=== PATIENT | female | born 1990 | race African-American/Black ===

== ENCOUNTER 2020-06-24 22:22 | Emergency (ER) | payer OTHER ==
[~2020-06-24] VITALS: Ht 160 cm; Wt 83.9 kg
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
--- NOTE | 2020-06-24 22:55 | NUR ---
ER DISCHARGE NOTE: Patient is cleared to be discharged per ERMD, pt is aox4, on room air, with stable vital signs. pt was given dc and prescription instructions, pt was able to verbalize understanding, pt id band removed without complications. pt is able to ambulate with steady gait. pt took all belongings.
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
[2020-06-24] MEDS ORDERED: IBUPROFEN600 M1 ORAL (23:28)
[2020-06-24 23:36] VITALS: BP 140/86
--- NOTE | 2020-06-24 23:36 | Diagnostic Imaging Report ---
EXAM: XR Left Hand Complete, 3 or More Views CLINICAL HISTORY: FB TECHNIQUE: Frontal, lateral and oblique views of the left hand. COMPARISON: No relevant prior studies available. FINDINGS: Bones/joints: Unremarkable. No acute fracture. No dislocation. Soft tissues: Unremarkable. No radiopaque foreign body. IMPRESSION: Normal left hand x-rays.
--- NOTE | 2020-06-24 23:39 | Diagnostic Imaging Report ---
EXAM: XR Right Foot Complete, 3 or More Views CLINICAL HISTORY: FB TECHNIQUE: Frontal, lateral and oblique views of the right foot. COMPARISON: No relevant prior studies available. FINDINGS: Bones/joints: Unremarkable. No acute fracture. No dislocation. Soft tissues: Unremarkable. No radiopaque foreign body. IMPRESSION: Unremarkable right foot x-rays.
== END 2020-06-24 23:55 | disposition home or self-care (01) ==
LOC: EMR 22:43
DX: S93.501A Unspecified sprain of right great toe, initial encounter (principal); S61.412A Laceration without foreign body of left hand, initial encounter; V43.92XA Unspecified car occupant injured in collision with other type car in traffic accident, initial encounter; Y92.411 Interstate highway as the place of occurrence of the external cause
CPT/HCPCS: 73130; 73630; Z7502; 99284

== ENCOUNTER 2020-07-16 12:34 | Emergency (ER) | payer OTHER ==
[~2020-07-16] VITALS: Ht 167.6 cm; Wt 72.6 kg
[~2020-07-16 12:34] MED LIST: IBUPROFEN600 M1 ORAL
[2020-07-16 13:30] VITALS: BP 130/80
[2020-07-16] MEDS ORDERED: Fluorescein Strips RIGHT EYE ONE (13:30)
[2020-07-16] MEDS ORDERED: Tetracaine 0.5% Opth 4ml Soln RIGHT EYE ONE (13:30)
--- NOTE | 2020-07-16 13:30 | NUR ---
complaints of eye pain glu fell her eye dr figueroa at bedside
--- NOTE | 2020-07-16 13:42 | Emergency Room Report ---
History of Present Illness General Chief Complaint: Eye Problems Source: Patient Present Illness HPI The patient was using superglue. She was replacing the cap and some splashed on her face and into her right eye. She felt it was over her pupil. There is no change in vision. She had immediate pain at that time. She tried to remove the glue that was in her eye with her finger. The pain is persisted. This happened within the last 2 hours. The pain is worse when her eyes open. She did not rinse out her eye. Patient denies exposure to Covid positive contacts. No fevers or upper respiratory symptoms. Her tetanus is up-to-date as of last year. Patient denies major medical problems. 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 Patient History Past Medical History: none Social History: Denies: smoking Social History Narrative From home Now: No Reviewed Nursing Documentation: PMH: Agreed; PSxH: Agreed Nursing Documentation-PMH Past Medical History: No Stated History Review of Systems Constitutional: Denies: fever Eye: Reports: see HPI ENT: Reports: see HPI Respiratory: Reports: see HPI Skin: Denies: rash Neurological: Denies: headache Physical Exam Vital Signs Date Time Temp Pulse Resp B/P (MAP) Pulse Ox O2 Delivery O2 Flow Rate FiO2 07/16/20 13:12 98.1 80 18 130/80 (97) 98 Room Air Sp02 EP Interpretation: reviewed, normal General Appearance: well appearing, no apparent distress, GCS 15 Head: normocephalic Eyes: right eye fluoroscene uptake - Right lateral sclera by Edmond lamp, right eye other - Lid eversion without foreign body present; bilateral eye PERRL, bilateral eye visual acuity - 20/30 bilaterally ENT: other - Wearing a mask Neck: full range of motion Cardiovascular #1: regular rate, rhythm Cardiovascular #2: 2+ radial (R) Gastrointestinal: normal inspection Musculoskeletal: gait/station normal Neurologic: alert, grossly normal Psychiatric: mood/affect normal - Slightly anxious and in pain Skin: normal color, no rash, warm/dry Medical Decision Making Diagnostic Impression: Primary Impression: Abrasion of sclera of right eye Qualified Codes: S05.8X1A - Other injuries of right eye and orbit, initial encounter ER Course The patient presents after superglue splashed into her right eye. There is no change in vision at this time. Differential includes corneal abrasion, foreign body reaction, chemical reaction to superglue, scleral abrasion amongst others. Tetracaine is instilled and Edmond lamp exam is performed as documented. Complete relief of pain with tetracaine. Evidence of scleral abrasion right lateral eye. The cornea appears intact without significant abrasion or foreign body. The eye was irrigated with normal saline. pH was checked and was 7 after irrigation. Discussed findings with patient and treatment plan. Advised not to drive. Told the patient she needs to have close follow-up to make sure this is healing properly. Patient improved and stable for outpatient observation and treatment. Last Vital Signs Date Time Temp Pulse Resp B/P (MAP) Pulse Ox O2 Delivery O2 Flow Rate FiO2 07/16/20 13:54 98.1 18 130/80 98 Room Air 07/16/20 13:12 80 Status: improved Disposition: HOME, SELF-CARE Condition: Improved Scripts Acetaminophen With Codeine (T#3) (TYLENOL #3 TAB*) Y Tab 1 TAB ORAL Q6HR PRN for For Pain, #6 TAB Prov: Alex Gallardo MD 07/16/20 Ibuprofen* (MOTRIN*) 600 Mg Tablet 600 MG ORAL Q6H PRN for FOR PAIN, #16 TAB 0 Refills Prov: Alex Gallardo MD 07/16/20 Ketorolac Tromethamine (Acular Ls) 5 Ml Drops 1 DROP RIGHT EYE FOUR TIMES A DAY PRN for For Pain, #5 ML Prov: Alex Gallardo MD 07/16/20 Sulfacetamide Sodium (BLEPH-10) 5 Ml Drops 2 DROP OP Q6HR, #5 ML Prov: Alex Gallardo MD 07/16/20 Referrals: MANUEL MONTANO,REFERRING (PCP) Alex Gallardo MD Jul 16, 2020 13:42
[2020-07-16] MEDS ORDERED: ACETAMINOPHEN-1 EAC1 ORAL (13:47)
[2020-07-16] MEDS ORDERED: IBUPROFEN600 M1 ORAL (13:47)
[2020-07-16] MEDS ORDERED: ACULAR LS OP S1 DROP RIGHT EYE (13:47)
[2020-07-16] MEDS ORDERED: BLEPH-105 ML OP (13:47)
[2020-07-16 13:54] VITALS: BP 130/80
--- NOTE | 2020-07-16 13:56 | NUR ---
discharged home with instrucion and rx follow up with pmd
== END 2020-07-16 13:57 | disposition home or self-care (01) ==
LOC: EMR 13:30
DX: S05.8X1A Other injuries of right eye and orbit, initial encounter (principal); X58.XXXA Exposure to other specified factors, initial encounter; Y92.9 Unspecified place or not applicable
CPT/HCPCS: 99282